=== PATIENT | male | born 2005 | race Caucasian/White ===

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

== ENCOUNTER 2024-03-11 00:55 | Emergency (ER) | payer OTHER, SELFPAY ==
[~2024-03-11] VITALS: Ht 170.2 cm; Wt 63.6 kg
[2024-03-11] MEDS ORDERED: ANEXSIA, NORCO 7.5MG/325MG TABLET(HYDROCODONE/APAP) PO ONE (02:45)
[2024-03-11 06:00] VITALS: BP 122/61; O2SAT 97
[2024-03-11 06:10] VITALS: TEMP 98
[2024-03-11] MEDS: BOOSTRIX VACCINE (TETANUS/DIPHTH/ACEL. PERTUSSIS) 0.5ML SYR IM.IMMUN ONE (06:15)
== END 2024-03-11 06:27 | disposition home or self-care (01) ==
LOC: M ED 00:55
DX: S80.11XA Contusion of right lower leg, initial encounter (principal); S06.300A Unspecified focal traumatic brain injury without loss of consciousness, initial encounter; Y92.410 Unspecified street and highway as the place of occurrence of the external cause; Y93.9 Activity, unspecified; Y99.9 Unspecified external cause status; Y03.0XXA Assault by being hit or run over by motor vehicle, initial encounter; Z23 Encounter for immunization